=== PATIENT | female | born 1950 | race Caucasian/White ===

== ENCOUNTER → 2018-09-08 15:09 | Outpatient (CLI) | payer MEDICARE, OTHER, SELFPAY ==
--- NOTE | 2018-09-08 | DI.ECHO.S_ITS ---
[facility] +---------+ [facility] +---------+ : : [address] : [place] : : : : [id number] : : : : Phone: [phone]---------+ Echocardiogram Report + + :Name: ELIANA CHILDERS Study Date: 09/08/2018 Height: 66 in : :[facility] Weight: 220 lb : : Gender: Female BSA: 2.1 m2 : :: 1950 Age: 68 yrs BP: 140/68 mmHg: :Reason For Study: Aortic valve regurgitation : : Performed By: Inocencia Aguayo : :Referring: TJ SERNA : + + Interpretation Summary Normal sinus rhythm. Normal LV size and wall thickness; normal wall motion and LV systolic function. Stage I diastolic dysfunction. Normal chamber sizes. Aortic valve leaflets are sclerotic. they are not well seen. There is mild- moderate aortic regurgitation based on color flow Doppler. Otherwise no significant valvular abnormalities. Compared to prior study 06/26/2014 no significant changes have occurred. Procedure: A two-dimensional transthoracic echocardiogram with color flow and Doppler was performed. The study quality was technically adequate. Comparison is made with the echocardiogram of 06-26-14. The patient was in normal sinus rhythm during the exam. Left Ventricle: The left ventricle is normal in size, wall thickness, and systolic function without any focal wall motion abnormalities. The ejection fraction is estimated to be 60-65%. Diastolic parameters suggest a relaxation abnormality of the left ventricle, consistent with probable normal filling pressures. Right Ventricle: The right ventricle grossly appears normal in size with probable normal systolic function. Atria: The left atrial size is normal. Right atrial size is normal. The interatrial septum is intact with no evidence for an atrial septal defect. Mitral Valve: The mitral valve is normal in structure and function. There is no mitral regurgitation noted. Aortic Valve: The aortic valve opens well. The aortic valve is mildly calcified. There is mild to moderate aortic regurgitation. Tricuspid Valve: The tricuspid valve is normal in structure and function. There is trace tricuspid regurgitation. The right ventricular systolic pressure is estimated to be at least 26 mmHg based on an estimated right atrial pressure of 3 mm Hg. Pulmonic Valve: The pulmonic valve is not well visualized. Great Vessels: The aortic root is normal size. The dimensions of the ascending aorta are normal. The aortic arch is normal in size. The IVC is of normal diameter and collapses greater than 50% with a sniff. This suggests a low right atrial pressure of 3 mm Hg. Pericardium/ Pleura There is no pericardial effusion. There is no pleural effusion. MMode/2D Measurements & Calculations LVIDd: 4.0 cm Ao root diam: 3.3 cm LVIDs: 2.8 cm Aortic Jxn: 2.8 cm FS: 31.3 % asc Aorta Diam: 3.3 cm IVSd: 1.00 cm Ao Arch Diam (Prox Trans): 3.2 cm LVPWd: 0.90 cm LV hannah. diameter/BSA (cm/m^2): 1.9 LV sys. diameter/BSA (cm/m^2): 1.3 LA dimension: 3.4 cm RA long axis: 4.5 cm LA A2 area: 21.5 cm2 RA area: 12.4 cm2 LA A4 area: 18.7 cm2 RA vol: 29.5 ml LA length (vol): 5.0 cm RA : 14.1 ml/m2 LA vol: 68.5 ml IVC diam: 1.1 cm LA vol index: 32.9 ml/m2 RVDd major: 5.1 cm RVD1 (basal): 3.6 cm RVD2 (mid): 2.8 cm Doppler Measurements & Calculations Ao V2 max: 182.6 cm/sec AI P1/2t: 618.6 msec Ao V2 mean: 123.5 cm/sec AI dec slope: 209.3 cm/sec2 Ao max P.3 mmHg Ao mean P.7 mmHg Ao V2 VTI: 37.0 cm MV E max hilton: 56.4 cm/sec TR max hilton: 238.3 cm/sec MV A max hilton: 104.0 cm/sec TR max P.7 mmHg MV E/A: 0.54 Med Peak E' Hilton: 4.1 cm/sec E/E' med: 13.7 Lat Peak E' Hilton: 5.6 cm/sec E/E' lat: 10.1 E/e' average: 11.9 MV dec time: 0.36 sec MV P1/2t: 107.8 msec MV P1/2t max hilton: 57.9 cm/sec MVA(P1/2t): 2.0 cm2 Electronically signed by: Shameka Daniels M.D. on Reading Physician:09/09/2018 06:44 AM
== END ==
PROVIDERS: Family Provider Family Medicine; PCP Family Medicine; Visit Provider Family Medicine
DX: I35.1 Nonrheumatic aortic (valve) insufficiency (principal)
CPT/HCPCS: 93306

== ENCOUNTER → 2019-02-02 12:13 | Outpatient (CLI) | payer MEDICARE, OTHER, SELFPAY ==
--- NOTE | 2019-02-02 12:17 | DI.MG.S_ITS ---
BILATERAL DIGITAL SCREENING MAMMOGRAM 3D/2D WITH CAD: 02/02/2019 CLINICAL: Routine screening. Family history of breast cancer. Comparison is made to exams dated: 07/31/2016 mammogram, 06/26/2014 mammogram, and 12/05/2012 mammogram - [facility]. There are scattered fibroglandular elements in both breasts. Current study was also evaluated with a Computer Aided Detection (CAD) system. There is a benign biopsy clip in the left breast. There are mole markers on both breasts. No significant masses, calcifications, or other findings are seen in either breast. There has been no significant interval change. IMPRESSION: NEGATIVE There is no mammographic evidence of malignancy. A 1 year screening mammogram is recommended. This exam was interpreted at Station ID: [id number]. NOTE: For mammograms, a report in lay terms will be sent to the patient. Approximately 15% of breast malignancies will not be visualized mammographically. In the management of a palpable breast mass, a negative mammogram must not discourage biopsy of a clinically suspicious lesion. Electronically Signed By: Juan rodríguez/gunnar:02/03/2019 07:15:16 letter sent: Normal Exam ACR BI-RADS Category 1: Negative 3341F
== END ==
PROVIDERS: PCP Family Medicine; Visit Provider Family Medicine
DX: Z12.31 Encounter for screening mammogram for malignant neoplasm of breast (principal); Z80.3 Family history of malignant neoplasm of breast
CPT/HCPCS: 77063; 77067

== ENCOUNTER → 2020-05-11 14:17 | Outpatient (CLI) | payer MEDICARE, OTHER, SELFPAY ==
--- NOTE | 2020-05-11 14:20 | DI.MG.S_ITS ---
BILATERAL DIGITAL SCREENING MAMMOGRAM 3D/2D WITH CAD: 05/11/2020 CLINICAL: Routine screening. Family history of breast cancer. Comparison is made to exams dated: 02/02/2019 mammogram and 07/31/2016 mammogram - [facility]. There are scattered fibroglandular elements in both breasts. Current study was also evaluated with a Computer Aided Detection (CAD) system. There are benign calcifications in both breasts. There also is a biopsy clip in the left breast. No significant masses, calcifications, or other findings are seen in either breast. There has been no significant interval change. IMPRESSION: BENIGN There is no mammographic evidence of malignancy. A 1 year screening mammogram is recommended. This exam was interpreted at Station ID: [id number]. NOTE: For mammograms, a report in lay terms will be sent to the patient. Approximately 15% of breast malignancies will not be visualized mammographically. In the management of a palpable breast mass, a negative mammogram must not discourage biopsy of a clinically suspicious lesion. Electronically Signed By: Aric smart/gunnar:05/13/2020 09:29:36 letter sent: Normal Exam ACR BI-RADS Category 2: Benign Finding(s) 3342F
== END ==
PROVIDERS: PCP Family Medicine; Referring Provider Family Medicine; Visit Provider Family Medicine
DX: Z12.31 Encounter for screening mammogram for malignant neoplasm of breast (principal); Z80.3 Family history of malignant neoplasm of breast
CPT/HCPCS: 77063; 77067

== ENCOUNTER → 2020-05-29 10:23 | Outpatient (CLI) | payer MEDICARE, OTHER, SELFPAY ==
[2020-05-29 12:56] LABS: COVID19 -Nasal RAPID Negative (Negative)
== END ==
PROVIDERS: PCP Family Medicine; Visit Provider Surgery
DX: Z11.59 Encounter for screening for other viral diseases (principal)
CPT/HCPCS: 87635; C9803

== ENCOUNTER → 2020-07-24 15:36 | Outpatient (CLI) | payer MEDICARE, OTHER, SELFPAY ==
--- NOTE | 2020-08-14 09:27 | PM.CARDMON.1 ---
Workers Compensation Claims Examiner Report Referral & Results Date Patient Seen: 07/24/20 Requesting provider: Gwen Pruitt Indication: Atrial premature depolarizations Duration of monitoring (days): 7 Diary information: There were 2 patient triggered events and no patient diary entries Patient triggered events were associated with (within 45 seconds) sinus rhythm and PACs Data: Minimum heart rate identified was 33 beats per minute at 11:51 on 07/30/2020 during a run of second-degree AV block type 1 or Wenckebach block. Minimum sinus heart rate was 52 beats per minute at 13:32 on 07/30/2020 Maximum sinus heart rate was 127 beats per minute at 10:51 on 07/31/2020 Maximum overall heart rate was 160 beats per minute at 17:20 on 07/26/2020 during a 12 beat run of SVT Approximately 1.8% of identified beats were PACs Less than 1% of identified beats were PVCs There were 10 runs of SVT the fastest being that will be run noted above the longest lasting 18.8 seconds at a rate of 108 beats per minute which suggests possible atrial tachycardia There were few supraventricular couplets and triplets as well as few ventricular couplets. Impression: Patient with occasional PACs as above Patient also with rare very short runs of SVT as above No other significant dysrhythmias identified
== END ==
PROVIDERS: Family Provider Family Medicine; PCP Family Medicine; Referring Provider Family Medicine; Visit Provider Family Medicine
DX: I49.1 Atrial premature depolarization (principal)
CPT/HCPCS: 0296T; 93242; 93244

== ENCOUNTER → 2020-07-29 09:14 | Outpatient (CLI) | payer MEDICARE, OTHER, SELFPAY ==
[2020-07-29 11:29] LABS: COVID19 -Nasal RAPID Negative (Negative)
== END ==
PROVIDERS: Family Provider Family Medicine; PCP Family Medicine; Visit Provider Surgery
DX: Z01.812 Encounter for preprocedural laboratory examination (principal); Z20.822 Contact with and (suspected) exposure to COVID-19
CPT/HCPCS: 87635; C9803

== ENCOUNTER 2020-07-30 08:16 | Day surgery (SDC) | payer MEDICARE, OTHER, SELFPAY ==
[2020-07-30] VITALS (8 sets, daily range): BP systolic 130–160; BP diastolic 62–77; PULSE 62–73; RESP 12–18; TEMP 36.2–36.8; O2SAT 94–98; BMI 34.0
--- NOTE | 2020-07-30 | PATH_ITS ---
[facility] Accession Number: [id number] . 01 Material submitted: . PART A: colon - CECAL POLYP PART B: colon - COLON POLYP AT 70CM . 01 Clinical history: . SDC . 02 Diagnosis: A. Cecal Polyp, Biopsy: Inflammatory polyp. . B. Colon Polyp at 70 cm, Biopsy: Tubular adenoma. MRV 08/02/2020 1131 Local . 02 Electronically signed: . Jaret Centeno MD, PhD, Pathologist NPI- [id number] . 01 Gross description: . Part A: CECAL POLYP: Received in formalin are 2 fragment(s) of jean-baptiste, soft tissue measuring 0.3 x 0.3 x 0.2 cm to 0.4 x 0.2 x 0.2 cm submitted entirely in 1 cassette(s) Part B: COLON POLYP AT 70CM: Received in formalin is 1 fragment(s) of jean-baptiste, soft tissue measuring 0.3 x 0.1 x 0.1 cm submitted entirely in 1 cassette(s) /ONEIL 07/31/2020 2207 Local . 02 Pathologist provided ICD-10: K51.40, D12.6 . 02 CPT . 888082, 874688 Performed at: 01 [facility] [address], [place], [place] [id number] MD Boyd Portillo MD Phone: [phone] Performed at: 02 [facility] [address] [place], [place] [id number] MD Josette Park MD Phone: [phone]
--- NOTE | 2020-07-30 08:19 | PM.PREOP ---
Pre-operative Note COVID-19 COVID-19 status: Negative Result date/Date tested (Pos, Neg/Pending): 07/29/20 Interval Note History & Physical reviewed/Exam performed by Physician: Yes Changes to H&P: No ASA Class (for procedural sedation): II
--- NOTE | 2020-07-30 09:02 | PM.HP.1 ---
History of Present Illness History of Present Illness Date Patient Seen: 07/30/20 Time Patient Seen: 09:02 Chief complaint: SDC Narrative: Patient is a woman here for a screening exam. She had her last colonoscopy over 10 years ago. No symptoms and no family history of colon cancer. Patient History Medical History (Updated 07/30/20 @ 08:41 by Josette Pride RN) Hypertension Hypothyroid Meds Home Medications and Allergies Home Medications Medication Instructions Recorded Confirmed Type levothyroxine 0.088 mg PO QDAY #0 02/21/12 07/30/20 History lisinopril 10 mg PO QDAY #0 02/21/12 07/30/20 History omeprazole 20 mg PO DAILY PRN 07/30/20 07/30/20 History Allergies Allergy/AdvReac Type Severity Reaction Status Date / Time lidocaine Allergy Severe THROAT Verified 07/30/20 08:41 SWELLING penicillin G [PENICILLIN G] Allergy Unknown RASH Verified 07/30/20 08:41 Review of Systems Review of Systems ROS: Yes All systems reviewed with the patient and are negative except as otherwise documented Exam Narrative Exam Narrative: Lungs are clear no rales or rhonchi heart regular rate and rhythm without murmur gallop. She is wearing a a anesthesiologist physician to evaluate PVCs per her history. Abdomen is protuberant soft. No obvious hernias or masses. Alert and oriented x3 Assessment & Plan Assessment & Plan narrative: The patient for a screening colonoscopy. I have discussed the procedure with them. Risks of bleeding, perforation which would necessitate major operation, failure to find remove all lesions, the potential tattoo were all discussed. All questions were answered. They wished to proceed.
[2020-07-30] MEDS: LACTATED RINGERS 1,000 ML 200 ML IV (09:11)
[2020-07-30] MEDS: MIDAZOLAM 5 MG/5 ML VIAL IV ×2 (09:22→09:45)
[2020-07-30] MEDS: fentaNYL 250 MCG/5 ML INJ IV ×2 (09:22→09:45)
--- NOTE | 2020-07-30 10:05 | PM.OP.ENDO ---
Operative Date/Time/Diagnoses Date of procedure: 07/30/20 Time of procedure: 10:05 Pre-op diagnosis: Screening examination. Last exam over 10 years ago. Post-op diagnosis: same (Cecal polyp and small lesion at 70 cm from the anal verge.) Procedure & Clinicians Study performed: Colonoscopy with hot snare polypectomy and cold biopsy. Same procedure as scheduled: Yes Indications: Screening Surgeon: Zeus Henry Procedure Notes SCOAP/Timeout: Performed Procedure in detail: The patient was placed in the left lateral decubitus position and underwent IV sedation directed by the surgeon consisting of fentanyl and Versed. Digital exam was unremarkable. The scope was inserted and advanced through the rectum into the sigmoid, descending, transverse, and ascending colon. Stiffener was inserted and pressure applied to reach the cecum.. The cecum was reached identified by the ileocecal valve and the appendiceal opening. There was a an eroded polypoid lesion in the cecum suggesting an inflammatory process. Was quite discrete. I snared it and cauterized the base. It appeared to be completely destroyed. There was no bleeding at completion. The scope was gradually brought out. One other Polyp was found at about 70 cm from the anal verge. This was a small polyp and was removed with biopsy forceps.. The scope ultimately was retroflexed in the rectum. The appearance was remarkable from says for scarring but no active hemorrhoidal disease.. The scope was removed and the patient tolerated the procedure well. The prep was very good. Scope withdrawal time: 7 minutes Sedation minutes: 33 Findings: polyp Specimen(s): other (Two polyps) Complications: none Post-procedure Recommendations: Colonscopy in 5 years Follow up: as needed Disposition: PACU
--- NOTE | 2020-07-30 11:03 | SUR.PHASEII ---
Patient resting quietly with no complaints. VSS. Attempted to call patient's friend for ride home and left a voicemail. No needs voiced at this time and patient states she can manage getting her clothing on.
== END 2020-07-30 11:35 | disposition home or self-care (01) ==
PROVIDERS: Family Provider Family Medicine; PCP Family Medicine; Referring Provider Specialist; Visit Provider Specialist
PROC: 0DJD8ZZ Inspection of Lower Intestinal Tract, Via Natural or Artificial Opening Endoscopic (ICD-10-PCS; CPT 45378; principal; 2020-07-30 09:15)
DX: Z12.11 Encounter for screening for malignant neoplasm of colon (principal); E03.9 Hypothyroidism, unspecified; I10 Essential (primary) hypertension; K51.40 Inflammatory polyps of colon without complications; D12.6 Benign neoplasm of colon, unspecified
CPT/HCPCS: 45385; 45380; 99152; 99153; J2250; J3010

== ENCOUNTER → 2020-08-01 13:51 | Outpatient (CLI) | payer MEDICARE, OTHER, SELFPAY ==
--- NOTE | 2020-08-01 | DI.ECHO.S_ITS ---
[facility] +---------+ Hospital +---------+ : : [address] : [place] : : : : [id number] : : : : Phone: [phone]---------+ Echocardiogram Report + + :Name: ELIANA CHILDERS Study Date: 08/01/2020 Height: 66 in : :[facility] ReadingLocation: Weight: 216 lb : : Gender: Female BSA: 2.1 m2 : :: 1950 Age: 70 yrs BP: 151/73 mmHg: :Reason For Study: CHEST PAIN : :Ordering Physician: KAREEM, : :TJ Performed By: Kelley Thompson : :Referring: TJ SERNA : + + Interpretation Summary The ejection fraction is estimated to be 65-70%. There is discrete nodular thickening of the left coronary cusp. There is mild aortic valve sclerosis. There is mild aortic regurgitation. There is mild tricuspid regurgitation. The right ventricular systolic pressure is estimated to be at least 27 mmHg based on an estimated right atrial pressure of 3 mm Hg. Compared to the prior echo report on 2018, there is no significant change. Procedure: A two-dimensional transthoracic echocardiogram with color flow and Doppler was performed. Best imaging was obtained from the apical window. Comparison is made with the echocardiogram of 09/08/2018. The patient was in sinus bradycardia with heart rates between 53-64 bpm during the exam. The patient had occasional PVCs during the exam. Left Ventricle: The left ventricle is normal in size. Left ventricular wall thickness is borderline increased. An intracavitary gradient is suspected. The ejection fraction is estimated to be 65-70%. Left ventricular wall motion is normal. Right Ventricle: The right ventricle is normal in size and function. Atria: Both atria are normal in size. There is no Doppler evidence for an interatrial shunt. Mitral Valve: The mitral valve leaflets appear borderline thickened, but open well. There is mild mitral annular calcification. There is trace mitral regurgitation. Aortic Valve: The aortic valve is trileaflet. There is discrete nodular thickening of the left coronary cusp. The aortic valve is slightly calcified. There is mild aortic valve sclerosis. There is no aortic valve stenosis. There is mild aortic regurgitation. Tricuspid Valve: The tricuspid valve is not well visualized, but is grossly normal. There is mild tricuspid regurgitation. The right ventricular systolic pressure is estimated to be at least 27 mmHg based on an estimated right atrial pressure of 3 mm Hg. Pulmonic Valve: The pulmonic valve is not well visualized. There is no pulmonic valvular regurgitation. Great Vessels: The aortic root is normal size. The dimensions of the ascending aorta are normal. The IVC is of normal diameter and collapses greater than 50% with a sniff. This suggests a low right atrial pressure of 3 mm Hg. Pericardium/ Pleura There is no pericardial effusion. There is no pleural effusion. MMode/2D Measurements & Calculations LVIDd: 4.6 cm LVOT diam: 1.9 cm LVIDs: 2.8 cm Ao root diam: 3.2 cm FS: 39.5 % Ao Arch Diam (Prox Trans): 3.1 cm EPSS: 0.47 cm IVSd: 1.1 cm LVPWd: 0.97 cm LV hannah. diameter/BSA (cm/m^2): 2.2 LV sys. diameter/BSA (cm/m^2): 1.3 LA A2 area: 22.6 cm2 RA long axis: 5.0 cm LA A4 area: 17.4 cm2 RA area: 14.4 cm2 LA length (vol): 5.4 cm RA vol: 34.9 ml LA vol: 62.2 ml RA : 16.9 ml/m2 LA vol index: 30.1 ml/m2 IVC diam: 1.4 cm RVD1 (basal): 3.4 cm TAPSE: 2.4 cm Doppler Measurements & Calculations Ao V2 max: 167.5 cm/sec LVOT Max Hilton: 146.1 cm/sec Ao V2 mean: 125.8 cm/sec LV V1 max P.5 mmHg Ao max P.2 mmHg LV V1 VTI: 37.5 cm Ao mean P.8 mmHg ALTHEA(I,D): 2.5 cm2 Ao V2 VTI: 44.0 cm ALTHEA(V,D): 2.5 cm2 sev ratio: 0.85 ALTHEA indexed to BSA (cm^2/m^2): 1.2 AI P1/2t: 719.7 msec AI dec slope: 164.7 cm/sec2 MV E max hilton: 64.8 cm/sec TR max hilton: 243.6 cm/sec MV A max hilton: 97.9 cm/sec TR max P.7 mmHg MV E/A: 0.66 PA V2 max: 67.6 cm/sec Med Peak E' Hilton: 6.5 cm/sec PA V2 mean: 46.9 cm/sec E/E' med: 10.0 PA mean P.98 mmHg Lat Peak E' Hilton: 6.7 cm/sec PA pr(Accel): 0.22 mmHg E/E' lat: 9.7 E/e' average: 9.9 MV dec time: 0.35 sec SV(LVOT): 108.2 ml Reading Physician:04:23 PM
== END ==
PROVIDERS: Family Provider Family Medicine; PCP Family Medicine; Referring Provider Family Medicine; Visit Provider Family Medicine
DX: I08.2 Rheumatic disorders of both aortic and tricuspid valves (principal); R07.89 Other chest pain; I49.1 Atrial premature depolarization
CPT/HCPCS: 93306

== ENCOUNTER → 2021-10-20 08:56 | Outpatient (CLI) | payer MEDICARE, OTHER, SELFPAY ==
--- NOTE | 2021-10-20 | DI.ECHO.S_ITS ---
[facility] +---------+ Hospital +---------+ : : [address] : [place] : : : : [id number] : : : : Phone: [phone]---------+ Echocardiogram Report + + :Name: ELIANA CHILDERS Study Date: 10/20/2021 Height: 66 in : :[facility] ReadingLocation: Weight: 195 lb : : Gender: Female BSA: 2.0 m2 : :: 1950 Age: 71 yrs BP: 163/82 mmHg: :Reason For Study: AORTIC INSUFFICIENCY : :Ordering Physician: KAREEM, : :TJ Performed By: Kelley Thompson : :Referring: TJ SERNA : + + Interpretation Summary The left ventricle is normal in size. The ejection fraction is estimated to be 60-65%. Left ventricular systolic function is normal. The right ventricle is normal in size and function. There is mild aortic regurgitation. Compared to the prior echo study, there has been no change in the severity of aortic regurgitation. Mild atherosclerotic plaque(s) in the aortic arch. The IVC is of normal diameter and collapses greater than 50% with a sniff. This suggests a low right atrial pressure of 3 mm Hg. Procedure: A two-dimensional transthoracic echocardiogram with color flow and Doppler was performed. The study quality was technically adequate. Comparison is made with the echocardiogram of 08/01/2020. The patient was in sinus rhythm with heart rates between 53-65 bpm during the exam. Left Ventricle: The left ventricle is normal in size. There is mild concentric left ventricular hypertrophy. There is no thrombus. The ejection fraction is estimated to be 60-65%. Left ventricular systolic function is normal. There are no focal wall motion abnormalities. Diastolic parameters suggest a relaxation abnormality of the left ventricle, consistent with probable normal filling pressures. Right Ventricle: The right ventricle is normal in size and function. Atria: Borderline left atrial enlargement. Right atrial size is normal. There is no Doppler evidence for an interatrial shunt. Mitral Valve: There is mild mitral annular calcification. There is mild mitral regurgitation. Aortic Valve: There is discrete nodular thickening of the left coronary cusp. The aortic valve is mildly calcified. The aortic valve is not well visualized. There is no aortic valve stenosis. There is mild aortic regurgitation. Compared to the prior echo study, there has been no change in the severity of aortic regurgitation. Tricuspid Valve: The tricuspid valve is normal in structure and function. There is trace tricuspid regurgitation. The right ventricular systolic pressure is estimated to be at least 24 mmHg based on an estimated right atrial pressure of 3 mm Hg. Pulmonic Valve: The pulmonic valve is not well visualized. Great Vessels: The aortic root is normal size. The ascending aorta could not be visualized. Mild atherosclerotic plaque(s) in the aortic arch. The IVC is of normal diameter and collapses greater than 50% with a sniff. This suggests a low right atrial pressure of 3 mm Hg. Pericardium/ Pleura There is no pericardial effusion. There is an anterior echo-free space consistent with a fat pad. There is no pleural effusion. MMode/2D Measurements & Calculations LVIDd: 4.7 cm LVOT diam: 2.0 cm LVIDs: 3.1 cm Ao root diam: 3.3 cm FS: 33.2 % Ao Arch Diam (Prox Trans): 3.2 cm IVSd: 1.1 cm LVPWd: 1.1 cm LV hannah. diameter/BSA (cm/m^2): 2.4 LV sys. diameter/BSA (cm/m^2): 1.6 LA A2 area: 21.8 cm2 RA long axis: 4.2 cm LA A4 area: 16.9 cm2 RA area: 10.8 cm2 LA length (vol): 4.8 cm RA vol: 23.4 ml LA vol: 65.0 ml RA : 11.8 ml/m2 LA vol index: 32.9 ml/m2 IVC diam: 1.1 cm RVD1 (basal): 3.6 cm RVD2 (mid): 2.9 cm TAPSE: 2.2 cm Doppler Measurements & Calculations Ao V2 max: 161.0 cm/sec LVOT Max Hilton: 144.6 cm/sec Ao V2 mean: 118.2 cm/sec LV V1 max P.4 mmHg Ao max P.4 mmHg LV V1 VTI: 34.0 cm Ao mean P.0 mmHg ALTHEA(I,D): 3.1 cm2 Ao V2 VTI: 36.0 cm ALTHEA(V,D): 2.9 cm2 sev ratio: 0.94 ALTHEA indexed to BSA (cm^2/m^2): 1.6 MV E max hilton: 63.2 cm/sec TR max hilton: 231.0 cm/sec MV A max hilton: 106.8 cm/sec TR max P.3 mmHg MV E/A: 0.59 Med Peak E' Hilton: 5.1 cm/sec E/E' med: 12.4 Lat Peak E' Hilton: 4.6 cm/sec E/E' lat: 13.7 E/e' average: 13.0 MV dec time: 0.35 sec SV(LVOT): 111.3 ml Reading Physician:04:12 PM
== END ==
PROVIDERS: Family Provider Family Medicine; PCP Family Medicine; Referring Provider Family Medicine; Visit Provider Family Medicine
DX: I08.0 Rheumatic disorders of both mitral and aortic valves; I70.0 Atherosclerosis of aorta
CPT/HCPCS: 93306

== ENCOUNTER → 2021-10-23 08:57 | Outpatient (CLI) | payer MEDICARE, OTHER, SELFPAY ==
[2021-10-23 10:19] LABS: Add Manual Diff / Slide Review NO; Basophils Absolute Auto 0 /uL (0-100); Basophils Percent Auto 0.6 % (0-2); Eosinophils Absolute Auto 300 /uL (0-450); Eosinophils Percent Auto 4.6 % (2-4); Hematocrit 44.3 % (36-46); Lymphocytes Absolute Auto 1100 /uL (1100-4500); Lymphocytes Percent Auto 17.5 % (25-40); Mean Corpuscular HGB Conc 33.9 % (30-36); Mean Corpuscular Hemoglobin 30.3 PG (26-34); Mean Corpuscular Volume 89.4 fL (80-100); Monocytes Absolute Auto 500 /uL (0-900); Monocytes Percent Auto 8.1 % (3-14); Neutrophils Absolute Auto 4400 /uL (1500-7000); Neutrophils Percent Auto 69.2 % (50-75); Platelet Count 141 X10^3/uL (150-400); Red Blood Cell Count 4.95 X10^6/uL (4.0-5.2); Red Cell Distribution Width 13.7 % (11.6-14.8); White Blood Cell Count 6.3 X10^3/uL (4.5-11.0)
[2021-10-23 10:45] LABS: Alanine Aminotransferase 17 IU/L (<35); Albumin 4.4 g/dL (3.5-5.0); Albumin Globulin Ratio 1.5 (1.0-2.8); Alkaline Phosphatase 98 U/L (38-126); Aspartate Aminotransferase 27 IU/L (14-36); BUN Creatinine Ratio 23.8 (6-22); Bilirubin Total 0.7 mg/dL (0.2-1.3); Blood Urea Nitrogen 20 mg/dL (7-17); Calcium 9.2 mg/dL (8.4-10.2); Carbon Dioxide 29 mmol/L (22-32); Chloride 104 mmol/L (98-107); Cholesterol 218 mg/dL (140-199); Estimated Glomerular Filt Rate > 60.0 mL/min (>60); Globulin 2.9 g/dL (1.7-4.1); Glucose 86 mg/dL (80-110); HDL Cholesterol 57 mg/dL (40-60); HEMOLYSIS < 15 (0-50); LDL Cholesterol Calculated 132 mg/dL (<100); Potassium 4.1 mmol/L (3.4-5.1); Sodium 141 mmol/L (137-145); Total Protein 7.3 g/dL (6.3-8.2); Triglycerides 146 mg/dL (35-150)
[2021-10-23 11:15] LABS: Thyroid Stimulating Hormone 1.87 uIU/mL (0.47-4.68)
== END ==
PROVIDERS: Family Provider Family Medicine; PCP Family Medicine; Referring Provider Family Medicine; Visit Provider Family Medicine
DX: E78.5 Hyperlipidemia, unspecified (principal)
CPT/HCPCS: 36415; 80053; 80061; 84436; 84443; 85025

== ENCOUNTER 2022-01-10 15:44 | Emergency (ER) | payer MEDICARE, OTHER, SELFPAY ==
[2022-01-10 15:53] VITALS: BP 185/80; PULSE 93; RESP 18; TEMP 36.8; O2SAT 96; BMI 32.8
--- NOTE | 2022-01-10 15:57 | PC.NURSE ---
pt states she was exposed to covid and has been testing herself everyday. she got a positive test today and on her way into town, she started to feel sick, mild nasal congestion and mild sore throat. she decided to come to the Emergency Room because her nieghbor states he came her on Wednesday and we gave him a box of antivirals to take home. she would like some of those too to shorten the duration of her illness
--- NOTE | 2022-01-10 16:05 | ED_ITS ---
HPI - URI/Sore Throat General Chief Complaint: Upper Respiratory Symptoms Stated Complaint: covid+ today/chills/week today Time Seen by Provider: 01/10/22 15:47 Source: patient Mode of arrival: Ambulatory History of Present Illness HPI Narrative: 71-year-old female former smoker with history of hypertension, GERD, hypothyroid presents stating that she has had a scratchy throat and some nasal congestion along with chills and feeling generally worn down over the course of today. She states that she was exposed to somebody with COVID recently and took a home test that was positive just before her arrival. She states that she on the whole feels quite well and certainly has no significant shortness of breath or GI symptoms such as nausea, vomiting or diarrhea. She is asking for the antiviral medication Related Data Home Medications Medication Instructions Recorded Confirmed levothyroxine 100 mcg tablet 0.088 mg PO QDAY ##0 02/21/12 07/30/20 lisinopril 10 mg tablet 10 mg PO QDAY ##0 02/21/12 07/30/20 omeprazole 20 mg tablet,delayed 20 mg PO DAILY PRN Heartburn 07/30/20 07/30/20 release Previous Rx's Medication Instructions Recorded nirmatrelvir 300 mg (150 mg x See Rx Instructions PO .COMPLEX 01/10/22 2)-ritonavir 100 mg tablet (EUA) #30 tabs (Paxlovid 300 mg () Allergies Allergy/AdvReac Type Severity Reaction Status Date / Time lidocaine Allergy Severe THROAT Verified 07/30/20 08:41 SWELLING penicillin G [PENICILLIN G] Allergy Unknown RASH Verified 07/30/20 08:41 Review of Systems Review of Systems Narrative: GENERAL: See HPI HEENT: See HPI RESPIRATORY: See HPI CARDIOVASCULAR: Denies chest pain, palpitations, orthopnea, edema, GASTROINTESTINAL: Denies nausea, vomiting, abdominal pain, diarrhea, constipation, melena. : Denies dysuria, frequency, incontinence, hematuria, urinary retention. MUSCULOSKELETAL: denies weakness, joint pain, or bony pain SKIN: Denies rash, skin lesions, or other NEUROLOGIC: Denies weakness, headache, numbness, change in speech, confusion, seizures, incoordination. PSYCHIATRIC: No concerning psychosocial issues. 12 point review of systems is negative except for those stated above Patient History Medical History Hypertension Hypothyroid Social History household members: none Smoking Status: Former smoker alcohol intake: current Smoking Status: Former smoker alcohol intake frequency: a few times a week Substance Use Type: does not use Exam Narrative Exam Narrative: GENERAL: [71] year old patient appears stated age. Well-developed patient, in mild distress. HEAD: Atraumatic. Normocephalic. EYES: Pupils equal round and reactive. Extraocular motions intact. No scleral icterus. No injection or drainage. ENT: Nose without bleeding, purulent drainage. Throat without erythema, tonsillar hypertrophy or exudate. Airway patent. NECK: Trachea midline. Non tender CARDIOVASCULAR: Regular rate and rhythm without murmurs, gallops, or rubs. RESPIRATORY: Clear to auscultation. Breath sounds equal bilaterally. No wheezes, rales, or rhonchi. GASTROINTESTINAL: Abdomen soft, non-tender, nondistended. EXTREMITIES: No edema or joint tenderness. BACK: Nontender without deformity or crepitance. No flank tenderness. NEURO: AOx3. SKIN: No rash or erythema of visible areas Initial Vital Signs Initial Vital Signs: Vital Signs Temperature 98.3 F 01/10/22 15:53 Pulse Rate 93 H 01/10/22 15:53 Respiratory Rate 18 01/10/22 15:53 Blood Pressure 185/80 H 01/10/22 15:53 Pulse Oximetry 96 01/10/22 15:53 Oxygen Delivery Method 01/10/22 15:53 Course Orders Ordered: ED Orders 01/10/22 16:15 Creatinine & eGFR Stat Vital Signs Vital signs: Vital Signs - 8 hr 01/10/22 15:53 Temperature 98.3 F Pulse Rate 93 H Respiratory Rate 18 Blood Pressure 185/80 H Pulse Oximetry 96 Oxygen Delivery Method Room Air MDM - URI/Sore Throat Lab Data Result diagrams: 01/10/22 16:15 Labs: Lab Results 01/10/22 Range/Units 16:15 Creatinine 0.85 (0.52-1.04) mg/dL Estimated GFR > 60 (>60) mL/min Discharge Plan Departure Patient Disposition: Home Clinical Impression: COVID-19 Instructions: DI for COVID-19 (Suspected or Confirmed ) Activity Restrictions/Additional Instructions: *You have been diagnosed with [ COVID-19] A prescription for Paxlovid has been sent to *What to do: ?* per recommendations from the CDC and the [facility] Department of Health ?* stay home except to get medical care. ?Restrict activities outside your home, except for getting medical care. ?Do not go to work, school, or public areas. ?Avoid using public transportation, ride sharing, or taxis. ?* separate yourself from other people in your home. ?* call ahead before visiting your doctor ?* Wear a facemask ?* Cover your coughs and sneezes ?* Clean your hands often ?* Avoid sharing household items ?* Clean all high-touch services every day ?* Monitor your symptoms and seek prompt medical attention if your illness is worsening, particularly with difficulty in breathing. You may discontinue your isolation when: ?1. You have been fever-free for at least 24 hours without the use of fever reducing medication, AND ?2. Your symptoms are getting better, AND ?3. At least 5 days have passed since symptoms first appeared ?4. If you have fever, continue to stay home until fever resolves Individuals with laboratory confirmed COVID-19 who have not had any symptoms may discontinue home isolation when at least 5 days have passed since the date of their first COVID-19 diagnostic test and have had no subsequent illness You should notifiy any friends and family that have been in close contact *If up to date on COVID Vaccines, then they do not need to quarantine unless symptoms develop. Get tested on day 5 (or sooner if symptoms develop). Take precautions and watch for symptoms until day 10 *If NOT up to date on COVID Vaccines, then CDC recommends quarantine for at least 5 full days. Wear a well fitted mask at home if you must be around others. If they ?develop symptoms they should get tested. If they remain asymptomatic they should get tested on day 5. They should take precautions and monitor for symptoms until day 10. Prescriptions: New Paxlovid (EUA) 150 mg x 2- 100 mg tablet See Rx Instructions .ROUTE .COMPLEX Qty: 30 0RF Rx Instructions: take TWO 150 mg tablets of nirmatrelvir with ONE 100 mg tablet of ritonavir twice daily for 5 days Creatinine on 01/10/22 is 0.85 No Action lisinopril 10 MG tablet 10 mg PO QDAY Qty: 0 levothyroxine 100 MCG tablet 0.088 mg PO QDAY Qty: 0 omeprazole 20 mg Tablet,Delayed Release (Dr/Ec) 20 mg PO DAILY PRN (Reason: Heartburn) Referrals: Gwen Pruitt MD [Primary Care Provider] - Visit Report Forms: Patient Portal/API
[2022-01-10 16:44] LABS: Estimated Glomerular Filt Rate > 60 mL/min (>60)
[2022-01-10 17:07] VITALS: BP 200/91; PULSE 75; RESP 18; O2SAT 97
== END 2022-01-10 17:10 | disposition home or self-care (01) ==
PROVIDERS: Emergency Provider Emergency Medicine; Family Provider Family Medicine; PCP Family Medicine
DX: U07.1 COVID-19 (principal)
CPT/HCPCS: 36415; 82565; 99281; 99283

== ENCOUNTER → 2022-12-08 11:14 | Outpatient (CLI) | payer MEDICARE, SELFPAY ==
--- NOTE | 2022-12-08 | DI.MG.S_ITS ---
BILATERAL DIGITAL SCREENING MAMMOGRAM 3D/2D WITH CAD: 12/08/2022 CLINICAL: Routine screening. Family history of breast cancer. Comparison is made to exams dated: 05/11/2020 mammogram, 02/02/2019 mammogram, and 07/31/2016 mammogram - [facility]. There are scattered areas of fibroglandular density in both breasts (category b / 25%-50% glandular tissue). Current study was also evaluated with a Computer Aided Detection (CAD) system. There are benign calcifications in both breasts. There also is a biopsy clip in the left breast. No significant masses, calcifications, or other findings are seen in either breast. There has been no significant interval change. IMPRESSION: BENIGN There is no mammographic evidence of malignancy. A 1 year screening mammogram is recommended. Based on the Tyrer Cuzick model (a risk assessment model) the patient's lifetime risk is 8.4% and her 10 year risk is 7.6%. According to the ACR, ACS, and NCCN guidelines, an annual breast MRI exam along with mammogram is recommended if the patient's lifetime risk is 20% or greater. This exam was interpreted at Station ID: [id number]. NOTE: For mammograms, a report in lay terms will be sent to the patient. Approximately 15% of breast malignancies will not be visualized mammographically. In the management of a palpable breast mass, a negative mammogram must not discourage biopsy of a clinically suspicious lesion. Electronically Signed By: Mitch goncalves/gunnar:12/08/2022 13:17:28 letter sent: Normal Exam ACR BI-RADS Category 2: Benign Finding(s) [id number]
--- NOTE | 2022-12-08 | DI.RAD.S_ITS ---
Bone Density Report Name: ELIANA CHILDERS Age: 72 Sex: Female Ethnicity: White Date of : 1950 Indication: postmenopausal; screening for osteoporosis; Referring Provider: TJ SERNA Study: Bone densitometry was performed. Exam Date: December 08, 2022 Accession number: [id number] Bone Density: Region BMD T-score Z-score Classification AP Spine(L1-L4) 1.347 2.7 5.1 Normal Femoral Neck (Left) 0.715 -1.2 0.8 Osteopenia Total Hip (Left) 0.887 -0.5 1.3 Normal Femoral Neck (Right) 0.708 -1.3 0.8 Osteopenia Total Hip (Right) 0.924 -0.1 1.6 Normal Total Hip Mean 0.905 -0.3 1.5 Normal World Health Organization criteria for BMD impression classify patients as: Normal (T-score at or above -1.0), Osteopenia (T-score between -1.0 and -2.5), or Osteoporosis (T-score at or below -2.5). 10-year Fracture Risk(1): Major Osteoporotic Fracture 9.8% Hip Fracture 1.6% Reported Risk Factors: [place] (), Neck BMD=0.708, BMI=33.9 (1) FRAX(R) Version 3.08. Fracture probability calculated for an untreated patient. Fracture probability may be lower if the patient has received treatment. Impression: The patient has low bone mass, based on the Right Femoral Neck T-score. The patient has an estimated ten-year risk of hip fracture of 1.6% and an estimated ten-year risk of major fracture of 9.8%, based on the WHO FRAX algorithm. Discussion: BONE DENSITY IS LOW AT ONE OR MORE SKELETAL SITES. This patient's lowest T-score is low at one or more skeletal sites. It meets the World Health Organization's (WHO) criteria for low bone mass (T-score between -1.0 and -2.5). The patient's 10-year risk of fracture as calculated by FRAX is less than the threshold where pharmacological therapy is recommended by the National Osteoporosis Foundation (NOF). However, all treatment decisions require clinical judgment and consideration of individual patient factors, including patient preferences, comorbidities, previous drug use, risk factors not captured in the FRAX model (e.g., frailty, falls, vitamin D deficiency, increased bone turnover, interval significant decline in bone density) and possible under or overestimation of fracture risk by FRAX. The patient should follow a healthful lifestyle (good nutrition with adequate calcium and vitamin D, and appropriate weight-bearing exercise). Follow-Up: Consider repeating this study in 2 to 3 years to reassess this patient's status, or sooner if there is some new clinical indication. Reported by: GRACE KELLER M.D. on 12/08/2022 12:08:00 PM.
== END ==
PROVIDERS: Family Provider Family Medicine; PCP Family Medicine; Referring Provider Family Medicine; Visit Provider Family Medicine
DX: Z12.31 Encounter for screening mammogram for malignant neoplasm of breast (principal); Z78.0 Asymptomatic menopausal state; Z80.3 Family history of malignant neoplasm of breast; M85.88 Other specified disorders of bone density and structure, other site
CPT/HCPCS: 77063; 77067; 77080

== ENCOUNTER → 2024-06-08 16:40 | Outpatient (CLI) | payer MEDICARE, SELFPAY ==
--- NOTE | 2024-06-08 16:41 | DI.MG.S_ITS ---
BILATERAL DIGITAL SCREENING MAMMOGRAM 3D/2D WITH CAD: 06/08/2024 CLINICAL: Routine screening. Family history of breast cancer. Comparison is made to exams dated: 12/08/2022 mammogram, 05/11/2020 mammogram, and 02/02/2019 mammogram - [facility]. There are scattered areas of fibroglandular density (category b / 25%-50% glandular tissue). Current study was also evaluated with a Computer Aided Detection (CAD) system. There are benign calcifications in both breasts. There also is a biopsy clip in the left breast. No significant masses, calcifications, or other findings are seen in either breast. There has been no significant interval change. IMPRESSION: BENIGN There is no mammographic evidence of malignancy. A 1 year screening mammogram is recommended. Based on the Tyrer Cuzick model (a risk assessment model) the patient's lifetime risk is 7.8% and her 10 year risk is 7.8%. According to the ACR, ACS, and NCCN guidelines, an annual breast MRI exam along with mammogram is recommended if the patient's lifetime risk is 20% or greater. This exam was interpreted at Station ID: [id number]. NOTE: For mammograms, a report in lay terms will be sent to the patient. Approximately 15% of breast malignancies will not be visualized mammographically. In the management of a palpable breast mass, a negative mammogram must not discourage biopsy of a clinically suspicious lesion. Electronically Signed By: Aric smart/gunnar:06/09/2024 11:19:07 letter sent: Normal Exam ACR BI-RADS Category 2: Benign
== END ==
PROVIDERS: Family Provider Family Medicine; PCP Family Medicine; Referring Provider Family Medicine; Visit Provider Family Medicine
DX: Z12.31 Encounter for screening mammogram for malignant neoplasm of breast (principal); Z80.3 Family history of malignant neoplasm of breast
CPT/HCPCS: 77063; 77067

== ENCOUNTER → 2024-11-09 09:11 | Outpatient (CLI) | payer MEDICARE, SELFPAY ==
--- NOTE | 2024-11-09 09:12 | DI.ECHO.S_ITS ---
[facility] : : [id number] : [place] : : [id number] : : Phone: [phone] Echocardiogram Report + + :Name: ELIANA CHILDERS Study Date: 11/09/2024 Height: 66 in : :[facility] ReadingLocation: Weight: 200 lb : : Gender: Female BSA: 2.0 m2 : :: 1950 Age: 74 yrs BP: 161/82 mmHg: :Reason For Study: MURMUR : :Ordering Physician: KAREEM, : :TJ Performed By: Kelley Thompson : :Referring: TJ SERNA : + + Interpretation Summary Normal sinus rhythm and uncontrolled blood pressure. Normal LV size; borderline concentric LVH. The ejection fraction is estimated to be 60-65%. Stage I diastolic dysfunction. Normal chamber sizes. Aortic valve is a trileaflet structure with partially fused left and non- coronary leaflets; there is associated calcification, mild aortic stenosis and mild aortic regurgitation. Compared to prior echo 10/20/2021 no significant changes have occurred. Procedure: A two-dimensional transthoracic echocardiogram with color flow and Doppler was performed. The study quality was technically adequate. Comparison is made with the echocardiogram of 10/20/2021. The patient was in sinus rhythm with heart rates between 55-65 bpm during the exam. Left Ventricle: The left ventricle is normal in size. Left ventricular wall thickness is borderline increased. The ejection fraction is estimated to be 55-60%. Right Ventricle: The right ventricle is normal in size and function. Atria: The left atrium is borderline dilated. Right atrial size is normal. There is no Doppler evidence for an interatrial shunt. Mitral Valve: There is mild mitral annular calcification. The mitral valve leaflets appear to open well. There is mild mitral regurgitation. Aortic Valve: There is discrete nodular thickening of the left coronary cusp. The aortic valve is mildly calcified. There is mild aortic stenosis. The peak aortic velocity is 2.2 m/sec. The aortic valve mean gradient is 10 mmHg. The calculated aortic valve area is 1.6 cm2. There is mild to moderate aortic regurgitation. Tricuspid Valve: The tricuspid valve leaflets are thin and pliable. There is mild tricuspid regurgitation. The right ventricular systolic pressure is estimated to be at least 26 mmHg based on an estimated right atrial pressure of 3 mm Hg. Pulmonic Valve: The pulmonic valve is not well visualized. There is no pulmonic valvular regurgitation. Great Vessels: The aortic root is normal size. The dimensions of the ascending aorta are normal. The IVC is of normal diameter and collapses greater than 50% with a sniff. This suggests a low right atrial pressure of 3 mm Hg. Pericardium/ Pleura There is no pericardial effusion. There is no pleural effusion. MMode/2D Measurements & Calculations LVIDd: 3.7 cm LVOT diam: 2.0 cm LVIDs: 2.5 cm Ao root diam: 2.9 cm FS: 31.2 % asc Aorta Diam: 3.4 cm EPSS: 0.36 cm Ao Arch Diam (Prox Trans): 3.3 cm IVSd: 1.1 cm LVPWd: 0.98 cm LV hannah. diameter/BSA (cm/m^2): 1.9 LV sys. diameter/BSA (cm/m^2): 1.3 LA A2 area: 22.0 cm2 RA long axis: 5.0 cm LA A4 area: 18.6 cm2 RA area: 14.3 cm2 LA length (vol): 5.2 cm RA vol: 34.8 ml LA vol: 67.3 ml RA : 17.4 ml/m2 LA vol index: 33.6 ml/m2 IVC diam: 1.2 cm RVD1 (basal): 3.2 cm RVD2 (mid): 2.5 cm TAPSE: 1.8 cm Doppler Measurements & Calculations Ao V2 max: 216.6 cm/sec LVOT Max Hilton: 111.2 cm/sec Ao V2 mean: 135.9 cm/sec LV V1 max P.9 mmHg Ao max P.2 mmHg LV V1 VTI: 27.4 cm Ao mean P.6 mmHg ALTHEA(I,D): 1.8 cm2 Ao V2 VTI: 48.9 cm ALTHEA(V,D): 1.6 cm2 sev ratio: 0.56 ALTHEA indexed to BSA (cm^2/m^2): 0.88 AI P1/2t: 558.7 msec AI dec slope: 233.8 cm/sec2 MV E max hilton: 70.0 cm/sec TR max hilton: 237.9 cm/sec MV A max hilton: 102.4 cm/sec TR max P.6 mmHg MV E/A: 0.68 PA V2 max: 87.2 cm/sec Med Peak E' Hilton: 4.9 cm/sec PA V2 mean: 63.7 cm/sec E/E' med: 14.4 PA mean P.8 mmHg Lat Peak E' Hilton: 6.9 cm/sec PA pr(Accel): 31.5 mmHg E/E' lat: 10.1 E/e' average: 12.2 MV dec time: 0.25 sec SV(LVOT): 86.3 ml Electronically signed by: Shameka Daniels M.D. on Reading Physician:11/10/2024 03:36 AM
== END ==
PROVIDERS: Family Provider Family Medicine; PCP Family Medicine; Referring Provider Family Medicine; Visit Provider Family Medicine
DX: R01.1 Cardiac murmur, unspecified (principal); I08.3 Combined rheumatic disorders of mitral, aortic and tricuspid valves
CPT/HCPCS: 93306

== ENCOUNTER → 2025-01-16 10:14 | Outpatient (CLI) | payer MEDICARE, SELFPAY ==
--- NOTE | 2025-01-16 10:15 | DI.MRI.S_ITS ---
PROCEDURE: MR HEAD/BRAIN WO CON INDICATIONS: Cognitive change TECHNIQUE: Non-contrast axial T1 spin echo, axial T2 fast spin echo, sagittal and axial FLAIR, coronal T2 fast spin echo, axial gradient echo, axial diffusion and ADC through the brain. COMPARISON: None. FINDINGS: Image quality: Excellent. CSF spaces: Mild ventriculomegaly. Basal cisterns are patent. No extra-axial fluid collections. Brain: No intracranial bleeds or mass effects. There is mild cerebral volume loss for age. There are minimal periventricular and deep white matter chronic small vessel ischemic changes. Brainstem appears normal. Diffusion-weighted images show no acute infarct. No chronic ischemic insults. Normal intravascular flow voids are present. Skull and face: Calvarial bone marrow is normal in signal. Orbits are normal. Sinuses: Sinuses and mastoids are clear. IMPRESSION: Mild ventriculomegaly which could be due to central volume loss versus normal pressure hydrocephalus. Correlate with clinical data. Mild, diffuse cerebral volume loss. Minimal periventricular and subcortical white matter chronic microvascular ischemic changes. No abnormal intracranial mass. No acute or chronic infarcts. Dictated by: Josee Arechiga MD, PhD on 01/16/2025 at 11:57 Approved by: Josee Arechiga MD, PhD on 01/16/2025 at 12:00
== END ==
PROVIDERS: Family Provider Family Medicine; PCP Family Medicine; Referring Provider Family Medicine; Visit Provider Family Medicine
DX: G93.89 Other specified disorders of brain (principal); R41.89 Other symptoms and signs involving cognitive functions and awareness
CPT/HCPCS: 70551

== ENCOUNTER → 2025-05-03 08:43 | Outpatient (CLI) | payer MEDICARE, OTHER, SELFPAY ==
--- NOTE | 2025-05-03 08:47 | DI.MRI.S_ITS ---
PROCEDURE: MR LUMBAR SPINE WO CON INDICATIONS: Bilateral leg weakness; radiculopathy TECHNIQUE: Noncontrast sagittal T1 spin echo and T2 fast echo, sagittal STIR, and T2 fast spin echo through the lumbar spine. In cases with scoliosis, additional coronal T2 fast spin echo may be performed. COMPARISON: None. FINDINGS: Image quality: Excellent. Alignment and Curvature: There is minimal retrolisthesis at L1-L2 and L2-L3. Minimal anterolisthesis is seen at L3-L4. Mild levoconvex scoliotic curvature is noted. Bone Marrow: Marrow is of normal overall signal. No acute vertebral body compression fractures. Spinal Cord: Conus medullaris terminates at the L1 level. Visualized cord demonstrates normal signal and size. Paraspinous Soft Tissues: No paravertebral masses. Significant right renal cysts are partially seen. Numerous bridging anterior osteophytes can be seen within the thoracolumbar junction. T12-L1: Normal appearance. L1-L2: The disc height and disk signal are relatively well-preserved. Mild generalized disc bulge is seen. Mild facet joint hypertrophy is seen. There is moderate left-sided and at least moderate right-sided neural narrowing. No significant central canal narrowing is seen. L2-L3: Moderate loss of disc height is seen. Loss of disc signal is seen. Moderate generalized disc bulge is seen. There is a superimposed central disc osteophyte protrusion. Moderate facet joint hypertrophy is seen. There is at least moderate right-sided and moderate left-sided neural foraminal narrowing. Moderate central canal narrowing is seen. L3-L4: The disc height is well-preserved. Loss of disc signal is seen at this level. At least moderate disc bulge is seen, which is eccentric to the right side. At least moderate facet hypertrophy is seen. Associated hypertrophy of the ligamentum flavum can be seen. There is at least moderate bilateral neural foraminal narrowing, right worse than left. There is a degree of compression seen upon the exiting nerve roots. At least moderate central canal narrowing is seen. L4-L5: Moderate loss of disc height is seen. Loss of disc signal is seen. Moderate generalized disc bulge is seen. There is a mild central disc extrusion. At least moderate facet hypertrophy is seen. There is at least moderate right-sided and moderate to severe left-sided neural foraminal narrowing. There is a degree of compression seen upon the exiting left L4 nerve root. Moderate central canal narrowing is seen. L5-S1: The disc height and disk signal are relatively well-preserved. Mild generalized disc bulge is seen. Moderate facet joint hypertrophy is seen. There is at least moderate left-sided and mild right-sided neural foraminal narrowing. Minimal central canal narrowing is seen. IMPRESSION: Multiple levels of significant lumbar spine degenerative change can be seen, which are overall most prominent at L2-L3 and L3-L4. There is partial visualization of significant right renal cysts. Dictated by: Pablo Victoria M.D. on 05/03/2025 at 10:39 Approved by: Pablo Victoria M.D. on 05/03/2025 at 10:45
== END ==
LOC: MRI 08:47
PROVIDERS: Family Provider Family Medicine; PCP Family Medicine; Referring Provider Family Medicine; Visit Provider Family Medicine
DX: M51.16 Intervertebral disc disorders with radiculopathy, lumbar region (principal); M51.17 Intervertebral disc disorders with radiculopathy, lumbosacral region; M48.061 Spinal stenosis, lumbar region without neurogenic claudication; M48.07 Spinal stenosis, lumbosacral region; M47.26 Other spondylosis with radiculopathy, lumbar region; M47.27 Other spondylosis with radiculopathy, lumbosacral region; R29.898 Other symptoms and signs involving the musculoskeletal system; N28.1 Cyst of kidney, acquired
CPT/HCPCS: 72148

== ENCOUNTER → 2025-06-21 09:49 | Outpatient (CLI) | payer MEDICARE, OTHER, SELFPAY | LOC: PHYS 09:52 | PROVIDERS: Family Provider Family Medicine; PCP Family Medicine; Referring Provider Family Medicine; Visit Provider Family Medicine | DX: R29.898 Other symptoms and signs involving the musculoskeletal system (principal); M54.16 Radiculopathy, lumbar region | CPT/HCPCS: 95886; 95910 ==